=== PATIENT | female | born 1960 | race Caucasian/White ===

== ENCOUNTER 2017-08-09 11:56 | Outpatient (CLI) | payer OTHER | END 2017-08-09 12:03 | disposition home or self-care (01) | LOC: NUCLEAR 11:56 | DX: M81.0 Age-related osteoporosis without current pathological fracture (principal); Z13.820 Encounter for screening for osteoporosis ==

== ENCOUNTER 2024-04-05 07:30 | Inpatient (IN) | payer OTHER ==
[~2024-04-05] VITALS: Ht 160 cm; Wt 80.7 kg
[2024-04-05 09:32] LABS: URINE APPEARANCE Clear; URINE BILIRRUBIN Negative (NEGATIVE); URINE BLOOD Negative; URINE COLOR Yellow; URINE GLUCOSE Negative (NEGATIVE); URINE KETONE Negative (NEGATIVE); URINE LEUKOCYTE Small; URINE NITRATE Negative; URINE PROTEIN Negative (NEGATIVE); URINE UROBILINOGEN 0.2 E.U./dl
[2024-04-05 09:35] LABS: HEMATOCRIT 39.8 % (36.0-45.00); HEMOGLOBIN 13.3 g/dL (12.0-15.00); MEAN CELL VOLUME 90.2 fL (80.00-100.00); MEAN CORPUSCULAR HEMOGLOBIN 30.2 pg (27.00-32.0); MEAN CORPUSCULAR HGB CONC 33.5 g/dl (32.0-36.0); PLATELET COUNT 209 K/uL (150-450); RED BLOOD COUNT 4.42 M/uL (4.00-6.00); RED CELL DISTRIBUTION WIDTH 14.5 % (11.5-14.5)
[2024-04-05 09:37] LABS: URINE BACTERIA 26.4 uL (0.0-1933); URINE EPITHELIAL CELLS 4.1 uL (0.0-38.8); URINE WBC 10.4 uL (0.0-23.2)
[2024-04-05 09:44] LABS: URINE RBC 1.9 uL (0.0-20.8)
[2024-04-05 09:55] LABS: INR 0.98; PARTIAL THROMBOPLASTIN TIME 29.3 SECONDS (22.0-34.0); PROTHROMBIN TIME 10.7 SECONDS (9.0-11.5)
[2024-04-05 10:28] LABS: ALBUMIN 3.9 gm/dL (3.4-5.0); BILIRUBIN TOTAL 0.91 mg/dL (0.3-1.2); CALCIUM 9.2 mg/dL (8.5-10.1); CHOL HDL RATIO 2.7 (0-5.0); CREATININE SERUM 0.7 mg/dL (0.55-1.02); GFR 84.51; GLOBULINA 3.7 G/DL (2.4-3.5); POTASSIUM 4.81 mEq/L (3.5-5.1); TOTAL PROTEIN 7.6 gm/dL (6.4-8.2)
[2024-04-05] MEDS ORDERED: ABILIFY5 MG PO (11:06)
[2024-04-05] MEDS ORDERED: CYMBALTA60 MG PO (11:06)
[2024-04-05] MEDS ORDERED: CLONAZEPAM1 MG PO (11:06)
[2024-04-05] MEDS ORDERED: TOPROL XL50 M1 PO (11:07)
[2024-04-05] MEDS ORDERED: CHILDREN'S ASPI81 MG PO (11:07)
[2024-04-05] MEDS ORDERED: HORIZANT300 MG PO (11:07)
[2024-04-05] MEDS ORDERED: NORVASC10 MG PO (11:08)
[2024-04-05] MEDS ORDERED: ESTAZOLAM1 MG PO (11:08)
[2024-04-05] MEDS ORDERED: LIPITOR40 MG PO (11:08)
[2024-04-05 11:09] VITALS: BP 150/88
[2024-04-05 11:30] LABS: RH POSITIVE
[2024-04-05 11:35] VITALS: BP 146/70
[2024-04-11] MEDS ORDERED: GABAPENTIN300 M2 (07:39)
[2024-04-11] MEDS ORDERED: RAMIPRIL10 MG (07:39)
[2024-04-11] MEDS ORDERED: ARIPIPRAZOLE5 MG (07:40)
[2024-04-11] MEDS ORDERED: FLONASE16 GM (07:40)
[2024-04-11] MEDS ORDERED: METOPROLOL SUCC50 MG (07:40)
[2024-04-11] MEDS ORDERED: CLONAZEPAM2 MG (07:40)
[2024-04-11] MEDS ORDERED: MORPHINE SULFATE 4 MG/ML VIAL IV ONE (08:15)
[2024-04-11] MEDS ORDERED: KETOROLAC TROMETHAMINE 60 MG VIAL IM ONE (08:15)
[2024-04-11] MEDS ORDERED: VANCOMYCIN HCL 1,000 MG VIAL IR SCH (08:15)
[2024-04-11] MEDS ORDERED: ISOPROPYL ALCOHOL 30 ML OUNCE TOP ONE (08:15)
[2024-04-11] MEDS ORDERED: TRANEXAMIC ACID 100MG/1ML (1000MG) AMPUL IV ONE ×2 (08:15)
[2024-04-11] MEDS ORDERED: BUPIVACAINE HCL/PF 0.25% 30ML VIAL InF ONE (08:15)
[2024-04-11] MEDS ORDERED: LIDOCAINE HCL 1%/EPINEPHRINE 20ML VIAL IJ ONE (08:15)
[2024-04-11] MEDS ORDERED: CEFAZOLIN SODIUM 1,000 MG VIAL IV ONE (08:15)
[2024-04-11] MEDS ORDERED: MORPHINE SULFATE 4 MG/ML CARTRIDGE IV PRN (09:00)
[2024-04-11] MEDS ORDERED: OxyCODONE HCL 5 MG TABLET (ROXICODONE) PO PRN (09:00)
[2024-04-11] MEDS ORDERED: ONDANSETRON HCL 2 MG/ML VIAL IV PRN (09:00)
[2024-04-11] MEDS ORDERED: CEFAZOLIN SODIUM 1,000 MG VIAL IV SCH (09:00)
[2024-04-11] MEDS ORDERED: GABAPENTIN 300 MG CAPSULE PO SCH (09:00)
[2024-04-11] MEDS ORDERED: SODIUM CHLORIDE 0.45 % 1,000 ML IV SCH (09:00)
[2024-04-11 12:00] VITALS: BP 146/70
[2024-04-11] MEDS ORDERED: ACETAMINOPHEN 500 MG GEL..CAP PO SCH (12:00)
[2024-04-11 16:00] VITALS: BP 138/66; O2SAT 100
[2024-04-12 00:24] VITALS: BP 124/60; O2SAT 100
[2024-04-12 06:31] LABS: HEMATOCRIT 32.1 % (36.0-45.00); HEMOGLOBIN 10.9 g/dL (12.0-15.00); MEAN CELL VOLUME 89.7 fL (80.00-100.00); MEAN CORPUSCULAR HEMOGLOBIN 30.3 pg (27.00-32.0); MEAN CORPUSCULAR HGB CONC 33.8 g/dl (32.0-36.0); PLATELET COUNT 145 K/uL (150-450); RED BLOOD COUNT 3.58 M/uL (4.00-6.00); RED CELL DISTRIBUTION WIDTH 14.4 % (11.5-14.5)
[2024-04-12] MEDS ORDERED: ELIQUIS2.5 MG PO (08:30)
[2024-04-12] MEDS ORDERED: PERCOCET 5-3251 EACH PO (08:30)
[2024-04-12] MEDS ORDERED: DUI500 PO (08:30)
[2024-04-12 08:56] VITALS: BP 116/58; O2SAT 98
[2024-04-12] MEDS ORDERED: METOPROLOL TARTRATE 25 MG TABLET PO SCH (09:00)
[2024-04-12] MEDS ORDERED: APIXABAN 2.5 MG TABLET PO SCH (09:00)
[2024-04-12] MEDS ORDERED: SENNOSIDES 1 TAB TABLET PO SCH (09:00)
[2024-04-12] MEDS ORDERED: IRON FUM,PS/FOLIC ACID/VITC/B3 1 CAP CAPSULE PO SCH (09:00)
[2024-04-12] MEDS ORDERED: AMLODIPINE BESYLATE 10 MG TABLET PO SCH (09:00)
[2024-04-12] MEDS ORDERED: SOD FERRIC GLUC COMPLX/SUCROSE 62.5 MG/5 ML AMPUL IV SCH (14:09)
[2024-04-12 16:00] VITALS: BP 101/63; O2SAT 96
[2024-04-12] MEDS ORDERED: VITAMIN B COMPLEX 1 EACH PO SCH (17:00)
[2024-04-12] MEDS ORDERED: Cyanocobalamin/Mecobalamin 1 TAB.SL SL SCH (17:00)
[2024-04-13 00:50] VITALS: BP 154/76; O2SAT 98
[2024-04-13 06:29] LABS: HEMATOCRIT 34.4 % (36.0-45.00); HEMOGLOBIN 11.8 g/dL (12.0-15.00); MEAN CELL VOLUME 88.9 fL (80.00-100.00); MEAN CORPUSCULAR HEMOGLOBIN 30.5 pg (27.00-32.0); MEAN CORPUSCULAR HGB CONC 34.3 g/dl (32.0-36.0); PLATELET COUNT 147 K/uL (150-450); RED BLOOD COUNT 3.87 M/uL (4.00-6.00); RED CELL DISTRIBUTION WIDTH 14.8 % (11.5-14.5)
[2024-04-13 09:43] VITALS: BP 142/65; O2SAT 98
[2024-04-13] MEDS ORDERED: OxyCODONE HCL/APAP UD (PERCOCET) PO ONE (12:45)
== END 2024-04-13 18:23 | DRG 470 ==
LOC: SURG 04-11 05:20 → O/R 04-11 05:20 → SURH 04-11 07:30 → SURG 04-11 10:41 → SURH 04-11 12:00 → SURG 04-13 18:23
PROVIDERS: ADMIT Orthopaedic Surgery; ATTEND Orthopaedic Surgery
PROC: 0MNN0ZZ Release Right Knee Bursa and Ligament, Open Approach (ICD-10-PCS; 2024-04-11)
PROC: 0SUC07Z Supplement Right Knee Joint with Autologous Tissue Substitute, Open Approach (ICD-10-PCS; 2024-04-11)
PROC: 0SRC0J9 Replacement of Right Knee Joint with Synthetic Substitute, Cemented, Open Approach (ICD-10-PCS; principal; 2024-04-11 12:00)
DX: M17.11 Unilateral primary osteoarthritis, right knee (principal); D62 Acute posthemorrhagic anemia; I10 Essential (primary) hypertension; M85.461 Solitary bone cyst, right tibia and fibula; S83.011A Lateral subluxation of right patella, initial encounter